=== PATIENT | female | born 1975 | race Caucasian/White ===

== ENCOUNTER 2024-04-03 18:24 | Emergency (ER) | payer MEDICAID ==
[~2024-04-03] VITALS: Ht 165.1 cm; Wt 90.0 kg
[2024-04-03 18:38] VITALS: O2SAT 98
[2024-04-03] MEDS: LACTATED RINGERS 1,000 ML IV ONE (18:45)
[2024-04-03 19:05] VITALS: TEMP 37.00296
[2024-04-03 19:15] LABS: CHLORIDE 107 mEq/L (98-107); POTASSIUM 4.1 mEq/L (3.5-5.1); SODIUM 139 mEq/L (136-145)
[2024-04-03 19:16] LABS: BASOPHILS % 0.6 % (0.0-2.0); CARBON DIOXIDE 23 mEq/L (21-32); EOSINOPHILS % 1.1 % (0.0-5.0); HEMATOCRIT. 40.2 % (36.0-48.0); HEMOGLOBIN. 13.5 g/dL (12.0-16.0); LYMPHOCYTES % 24.3 % (20.0-50.0); MEAN CORPUSCULAR HEMOGLOBIN 28.4 pg (28.0-32.0); MEAN CORPUSCULAR HGB CONC 33.6 g/dL (31.0-37.0); MEAN CORPUSCULAR VOLUME 84.5 fL (81.0-99.0); MEAN PLATELET VOLUME 8.1 fl (7.4-10.4); PLATELET 305 x1000/uL (130-400); RED BLOOD CELL COUNT 4.76 mill/uL (4.2-5.4); RED CELL DISTRIBUTION WIDTH 14.4 % (11.6-14.6); WHITE BLOOD COUNT 10.3 x1000/uL (4.5-11.0)
[2024-04-03 19:17] LABS: CALCIUM 9.8 mg/dL (8.7-10.4)
[2024-04-03 19:21] LABS: CREATININE 0.9 mg/dL (0.6-1.0); GLUCOSE 104 mg/dL (70-105); UREA NITROGEN BLOOD 7 mg/dL (9-23)
[2024-04-03 19:30] LABS: HCG SCREEN NEGATIVE
[2024-04-03 19:32] LABS: TROPONIN I HIGH SENSITIVITY < 4 ng/L (3.0-34)
[2024-04-03] MEDS ORDERED: P20 MT (20:48)
[2024-04-03] MEDS ORDERED: IBUP-2029 MT (20:49)
[2024-04-03 21:08] VITALS: BP 141/82; PULSE 82; RESP 15; O2SAT 100
[2024-04-04] MEDS ORDERED: IOHEXOL-350 100 ML BOTTLE ONE (07:19)
== END 2024-04-03 21:10 | disposition home or self-care (01) ==
LOC: ER 18:24
DX: R09.1 Pleurisy (principal); M94.0 Chondrocostal junction syndrome [Tietze]; J44.9 Chronic obstructive pulmonary disease, unspecified
CPT/HCPCS: 99285; 71275; 71045; 80048; 84703; 85025; 85379; 84484; 36415; 93005; J7120; Q9967